=== PATIENT | female | born 1990 | race Two or more races ===

== ENCOUNTER 2019-08-24 16:31 | Emergency (ER) | payer OTHER ==
[~2019-08-24] VITALS: Ht 167.6 cm; Wt 130.2 kg
--- NOTE | 2019-08-24 16:45 | NUR ---
SIRIA PAYTON 86 from HOME "Abdominal pain/nausea/vomiting", TO ER BED 2, HOOKED TO MONITOR, CHANGED TO HOSP GOWN, WARM BLANKET PROVIDED, PATIENT AOx 4, BREATHING EVEN AND UNLABORED, TOBACCO SORTER DEGRASSE AT BEDSIDE
--- NOTE | 2019-08-24 16:54 | NUR ---
US TECH AT BEDSIDE
[2019-08-24] MEDS ORDERED: HYDROMORPHONE INJ 2 MG/ML DISP.SYRIN IV ONE (17:00)
[2019-08-24] MEDS ORDERED: ONDANSETRON HCL/PF 4 MG/2 ML VIAL IVP ONE (17:00)
[2019-08-24] MEDS ORDERED: IV NS 0.9% 1,000 ML BAG IV ONE (17:00)
[2019-08-24] MEDS ORDERED: ONDANSETRON HCL/PF 4 MG/2 ML VIAL ONE (17:02)
[2019-08-24] MEDS ORDERED: HYDROMORPHONE 1 MG/1 ML DISP.SYRIN ONE (17:02)
--- NOTE | 2019-08-24 17:20 | NUR ---
UNABLE TO PROVIDE URINE SAMPLE AT THIS TIME, MADE CHART COMPUTER DEGRASSE AWARE
[2019-08-24 17:21] LABS: BASOPHILS # (AUTO) 0.1 /CMM (0.0-0.2); BASOPHILS % (AUTO) 0.5 % (0.0-2.0); EOSINOPHILS % (AUTO) 0.2 % (0.0-6.0); HEMATOCRIT 52 % (33-45); LYMPHOCYTES # (AUTO) 2.3 /CMM (0.8-4.8); LYMPHOCYTES % (AUTO) 15.4 % (20.0-44.0); MEAN CORPUSCULAR HGB CONC 33 g/dl (31.0-36.0); MEAN CORPUSCULAR VOLUME 82 fL (82-100); MONOCYTES # (AUTO) 0.6 /CMM (0.1-1.30); MONOCYTES % (AUTO) 3.8 % (2.0-12.0); NEUTROPHILS # (AUTO) 11.7 /CMM (1.8-8.9); NEUTROPHILS % (AUTO) 80.1 % (43.0-81.0); PLATELET COUNT (AUTO) 437 /CMM (150-450); RED BLOOD CELL COUNT(AUTO) 6.31 MIL/uL (4.0-5.2); WHITE BLOOD COUNT (AUTO) 14.6 K/uL (4.3-11.0)
[2019-08-24 17:28] LABS: CALCIUM, SERUM 9.9 mg/dL (8.5-10.1); POTASSIUM 3.7 mmol/L (3.5-5.1)
[2019-08-24 17:34] LABS: ALBUMIN 3.9 g/dL (3.4-5.0); BILIRUBIN,DIRECT 0.1 mg/dL (0.0-0.2); BILIRUBIN,TOTAL 0.6 mg/dL (0.2-1.0); TOTAL PROTEIN, SERUM 8.3 g/dL (6.4-8.2)
--- NOTE | 2019-08-24 18:07 | NUR ---
URINE SAMPLE COLLECTED AND SENT TO LAB
[2019-08-24 18:20] LABS: APPEARANCE,URINE Slightly Cloudy (CLEAR); BILIRUBIN,URINE MODERATE (NEGATIVE); BLOOD, URINE Negative Ery/uL (NEGATIVE); COLOR,URINE Dark (YELLOW); KETONES,URINE 15 (NEGATIVE); LEUKOCYTE ESTERASE ,URINE Negative (NEGATIVE); NITRITE, URINE Negative (NEGATIVE); PH,URINE 5.5 (5.0-8.0); PROTEIN,URINE 100 mg/dl (NEGATIVE); UGLUCOSE Negative (NEGATIVE)
--- NOTE | 2019-08-24 18:24 | NUR ---
wheeled out via rney for ct scan
[2019-08-24] MEDS ORDERED: CT SWABBABLE VALVE TRANS SET 1 EA INFUS.SET MC ONE (18:29)
[2019-08-24] MEDS ORDERED: IOHEXOL-300 100 ML VIAL IV ONE (18:29)
[2019-08-24] MEDS ORDERED: IV NS 0.9% 250 ML IV ONE (18:30)
[2019-08-24 18:47] LABS: WBC,URINE 0-2 /HPF (0-3)
[2019-08-24 18:48] LABS: BACTERIA,URINE Few /HPF (None Seen)
[2019-08-24 18:49] LABS: CALCIUM OXALATE CRYSTALS,UR Few /HPF (None Seen); HYALINE CASTS, URINE Rare /LPF (None Seen); URINE AMORPHOUS URATE Few /HPF (None Seen)
--- NOTE | 2019-08-24 19:30 | NUR ---
REPORT GIVEN TO EL STARK FOR S[facility]
[2019-08-24] MEDS ORDERED: ONDANSETRON 4 MG TAB.RAPDIS ONE (19:58)
[2019-08-24] MEDS ORDERED: ONDANSETRON 4 MG TAB.RAPDIS SL ONE (20:00)
--- NOTE | 2019-08-24 20:08 | NUR ---
Patient discharged to home in stable condition. Written and verbal after care instructions given. Patient verbalizes understanding of instruction.IV removed. Catheter intact and site benign. Pressure and 4x4 applied to site. No bleeding noted. Pt ambulatory with a steady gait
[2019-08-24 20:10] VITALS: BP 108/67
== END 2019-08-24 20:10 | disposition home or self-care (01) ==
LOC: ER 16:34
DX: K29.70 Gastritis, unspecified, without bleeding (principal); K76.0 Fatty (change of) liver, not elsewhere classified; D75.1 Secondary polycythemia; J45.909 Unspecified asthma, uncomplicated
CPT/HCPCS: 36415; 74177; 76705; 80048; 80076; 81001; 83690; 84703; 85025; 96361; 96374; 96375; 96376; 99284; J1170; J2405; J7030; J7050; Q0162; Q9967; 81000-TC

== ENCOUNTER 2020-06-28 17:05 | Inpatient (IN) | payer BC, OTHER ==
[~2020-06-28] VITALS: Ht 167.6 cm; Wt 142.4 kg
[2020-06-28 09:30] VITALS: BP 127/73
[2020-06-28] MEDS ORDERED: ONDANSETRON HCL/PF 4 MG/2 ML VIAL IVP ONE ×2 (17:30→18:30)
[2020-06-28] MEDS ORDERED: PANTOPRAZOLE 40 MG VIAL IV ONE (17:30)
[2020-06-28] MEDS ORDERED: IV NS 0.9% 1,000 ML BAG IV ONE (17:30)
[2020-06-28] MEDS ORDERED: ONDANSETRON HCL/PF 4 MG/2 ML VIAL ONE ×2 (17:33→18:30)
[2020-06-28] MEDS ORDERED: PANTOPRAZOLE 40 MG VIAL ONE (17:33)
[2020-06-28 17:53] LABS: BASOPHILS # (AUTO) 0.1 /CMM (0.0-0.2); BASOPHILS % (AUTO) 0.7 % (0.0-2.0); EOSINOPHILS % (AUTO) 0.5 % (0.0-6.0); HEMATOCRIT 42 % (33-45); HEMOGLOBIN 14.1 g/dL (11.5-14.8); LYMPHOCYTES % (AUTO) 21.8 % (20.0-44.0); MEAN CORPUSCULAR HGB CONC 33 g/dl (31.0-36.0); MEAN CORPUSCULAR VOLUME 82 fL (82-100); MONOCYTES # (AUTO) 0.9 /CMM (0.1-1.30); MONOCYTES % (AUTO) 6.4 % (2.0-12.0); NEUTROPHILS # (AUTO) 9.6 /CMM (1.8-8.9); NEUTROPHILS % (AUTO) 70.6 % (43.0-81.0); PLATELET COUNT (AUTO) 465 /CMM (150-450); RED BLOOD CELL COUNT(AUTO) 5.12 MIL/uL (4.0-5.2); WHITE BLOOD COUNT (AUTO) 13.6 K/uL (4.3-11.0)
[2020-06-28 18:11] LABS: ALANINE AMINOTRANSFERASE 29 U/L (12-78); ALBUMIN 3.4 g/dL (3.4-5.0); ALKALINE PHOSPHATASE 85 U/L (46-116); ASPARTATE AMINOTRANSFERASE 20 U/L (15-37); BILIRUBIN,DIRECT 0.1 mg/dL (0.0-0.2); BILIRUBIN,TOTAL 0.4 mg/dL (0.2-1.0); CALCIUM, SERUM 9.4 mg/dL (8.5-10.1); CARBON DIOXIDE 26 mmol/L (21-32); CHLORIDE 102 mmol/L (98-107); GLUCOSE 112 mg/dL (74-106); LIPASE 1858 U/L (73-393); POTASSIUM 3.6 mmol/L (3.5-5.1); SODIUM SERUM 140 mmol/L (136-145); TOTAL PROTEIN, SERUM 8.1 g/dL (6.4-8.2); UREA NITROGEN, BLOOD 15 mg/dL (7-18)
[2020-06-28] MEDS ORDERED: MORPHINE SULFATE INJ 2 MG/ML DISP.SYRIN IV ONE (18:30)
[2020-06-28] MEDS ORDERED: MORPHINE SULFATE INJ 4 MG/ML DISP.SYRIN ONE (18:31)
[2020-06-28 18:42] LABS: BILIRUBIN,URINE Negative (NEGATIVE); COLOR,URINE YELLOW (YELLOW); LEUKOCYTE ESTERASE ,URINE Negative (NEGATIVE); NITRITE, URINE Negative (NEGATIVE); PROTEIN,URINE Negative (NEGATIVE); UGLUCOSE Negative (NEGATIVE); UROBILINOGEN,URINE 0.2 EU/dL (0.2)
[2020-06-28 18:52] LABS: BACTERIA,URINE Few /HPF (None Seen); RBC,URINE 0-2 /HPF (0-2); SQUAMOUS EPITHELIAL CELL,UR Few /HPF (None Seen); WBC,URINE 0-2 /HPF (0-3)
[2020-06-28 18:58] LABS: CHOLESTEROL 304 mg/dL (<200); HDL CHOLESTEROL 39 mg/dL (40-60); LDL 209 mg/dL (0-99); TRIGLYCERIDES 278 mg/dL (30-150)
[2020-06-28] MEDS ORDERED: ACETAMINOPHEN 650 MG/SUPP.RECT RC PRN (20:00)
[2020-06-28] MEDS ORDERED: ONDANSETRON HCL/PF 4 MG/2 ML VIAL IVP PRN (20:00)
[2020-06-28] MEDS ORDERED: MORPHINE SULFATE INJ 2 MG/ML DISP.SYRIN IV PRN (20:00)
[2020-06-28 20:42] VITALS: BP 136/74
[2020-06-28] MEDS ORDERED: ENALAPRILAT INJ (1.25 MG/ML) 1.25 MG/ML VIAL IV PRN (22:30)
[2020-06-28] MEDS: IV NS 0.9% 1,000 ML IV PRN (22:50)
[2020-06-29 07:17] LABS: BASOPHILS % (AUTO) 0.4 % (0.0-2.0); EOSINOPHILS % (AUTO) 0.8 % (0.0-6.0); HEMATOCRIT 38 % (33-45); HEMOGLOBIN 12.5 g/dL (11.5-14.8); LYMPHOCYTES # (AUTO) 2.7 /CMM (0.8-4.8); MEAN CORPUSCULAR HGB CONC 34 g/dl (31.0-36.0); MEAN CORPUSCULAR VOLUME 83 fL (82-100); MONOCYTES # (AUTO) 0.7 /CMM (0.1-1.30); MONOCYTES % (AUTO) 6.4 % (2.0-12.0); NEUTROPHILS # (AUTO) 7.7 /CMM (1.8-8.9); NEUTROPHILS % (AUTO) 68.4 % (43.0-81.0); PLATELET COUNT (AUTO) 355 /CMM (150-450); RED BLOOD CELL COUNT(AUTO) 4.52 MIL/uL (4.0-5.2); WHITE BLOOD COUNT (AUTO) 11.2 K/uL (4.3-11.0)
[2020-06-29] MEDS ORDERED: NORG1TAB12 PO (07:33)
[2020-06-29 07:36] LABS: THYROID STIMULATING HORMONE 1.803 uIU/mL (0.358-3.74)
[2020-06-29 07:37] LABS: CALCIUM, SERUM 8.5 mg/dL (8.5-10.1); CREATININE 0.9 mg/dL (0.6-1.3); MAGNESIUM 2.3 mg/dL (1.8-2.4); PHOSPHORUS 3.8 mg/dL (2.5-4.9)
[2020-06-29] MEDS: IV NS 0.9% 1,000 ML IV PRN (08:30)
[2020-06-29] MEDS ORDERED: PANTOPRAZOLE 40 MG VIAL IV SCH (09:00)
== END 2020-06-29 18:30 | disposition home or self-care (01) | DRG 439 ==
LOC: ER 17:07 → MED 20:43
PROVIDERS: ADMIT Nurse Practitioner Acute Care
DX: K85.90 Acute pancreatitis without necrosis or infection, unspecified (principal); Z68.43 Body mass index [BMI] 50.0-59.9, adult; E66.01 Morbid (severe) obesity due to excess calories; I10 Essential (primary) hypertension; J45.909 Unspecified asthma, uncomplicated; K76.0 Fatty (change of) liver, not elsewhere classified; D72.829 Elevated white blood cell count, unspecified; R73.9 Hyperglycemia, unspecified; Z20.822 Contact with and (suspected) exposure to COVID-19; E78.5 Hyperlipidemia, unspecified
CPT/HCPCS: 36415; 71045-TC; 76700-TC; 80048-TC; 80061-TC; 80076-TC; 81001; 83690-TC; 83735-TC; 84100-TC; 84443-TC; 84484-TC; 84703-TC; 85025-TC; 87081-TC; C9113; C9803; G0378; J2270; J2405; J3490; J7030

== ENCOUNTER 2021-04-05 10:46 | Emergency (ER) | payer BC ==
[~2021-04-05] VITALS: Ht 167.6 cm; Wt 152.0 kg
[~2021-04-05 10:46] MED LIST: NORG1TAB12 PO
--- NOTE | 2021-04-05 11:04 | NUR ---
SENT FROM URGENT CARE FOR C/O RIGHT LOWER ABDOMINAL PAIN AND C/O NAUSEA. RATES PAIN 8/10. ABDOMEN SOFT AND NON-DISTENDED. DENIES VOMITING. RESPIRATION REGULAR AND UNLABORED. WILL CONTINUE TO MONITOR THE PATIENT.
--- NOTE | 2021-04-05 11:13 | NUR ---
URINE SAMPLE COLLECTED AND SENT TO LAB
[2021-04-05] MEDS ORDERED: MORPHINE SULFATE INJ 2 MG/ML DISP.SYRIN ONE (11:18)
[2021-04-05] MEDS ORDERED: ONDANSETRON HCL/PF 4 MG/2 ML VIAL ONE (11:18)
[2021-04-05] MEDS ORDERED: ONDANSETRON HCL/PF 4 MG/2 ML VIAL IVP ONE (11:30)
[2021-04-05] MEDS ORDERED: MORPHINE SULFATE INJ 2 MG/ML DISP.SYRIN IV ONE (11:30)
[2021-04-05 11:43] LABS: BILIRUBIN,URINE NEGATIVE (NEGATIVE); COLOR,URINE YELLOW (YELLOW); LEUKOCYTE ESTERASE ,URINE NEGATIVE (NEGATIVE); NITRITE, URINE NEGATIVE (NEGATIVE); PH,URINE 7.5 (5.0-8.0); PROTEIN,URINE NEGATIVE (NEGATIVE); UGLUCOSE NEGATIVE (NEGATIVE); UROBILINOGEN,URINE 0.2 EU/dL (0.2)
--- NOTE | 2021-04-05 11:51 | NUR ---
INITIATED RAC #20G S/L. BLOODWORK COLLECTED AND SENT TO LAB US TECH AT PT'S BEDSIDE
[2021-04-05 11:53] LABS: BASOPHILS # (AUTO) 0.1 K/uL (0.0-0.2); BASOPHILS % (AUTO) 0.8 % (0.0-2.0); EOSINOPHILS % (AUTO) 0.5 % (0.0-6.0); HEMATOCRIT 40 % (33-45); HEMOGLOBIN 12.9 g/dL (11.5-14.8); LYMPHOCYTES # (AUTO) 2.4 K/uL (0.8-4.8); LYMPHOCYTES % (AUTO) 23.3 % (20.0-44.0); MEAN CORPUSCULAR HGB CONC 33 g/dl (31.0-36.0); MEAN CORPUSCULAR VOLUME 81 fL (82-100); MONOCYTES # (AUTO) 0.7 K/uL (0.1-1.30); MONOCYTES % (AUTO) 7.2 % (2.0-12.0); NEUTROPHILS # (AUTO) 7.1 K/uL (1.8-8.9); NEUTROPHILS % (AUTO) 68.2 % (43.0-81.0); PLATELET COUNT (AUTO) 374 K/uL (150-450); RED BLOOD CELL COUNT(AUTO) 4.93 MIL/uL (4.0-5.2); WHITE BLOOD COUNT (AUTO) 10.3 K/uL (4.3-11.0)
--- NOTE | 2021-04-05 12:27 | NUR ---
TAKE TO CT
[2021-04-05 12:34] LABS: CALCIUM, SERUM 8.8 mg/dL (8.5-10.1); CREATININE 0.8 mg/dL (0.6-1.3); POTASSIUM 4.1 mmol/L (3.5-5.1)
--- NOTE | 2021-04-05 12:35 | NUR ---
THE PATIENT IS BACK FROM CT
[2021-04-05 12:45] LABS: ALBUMIN 3.2 g/dL (3.4-5.0); BILIRUBIN,DIRECT 0.1 mg/dL (0.0-0.2); BILIRUBIN,TOTAL 0.4 mg/dL (0.2-1.0); TOTAL PROTEIN, SERUM 7.4 g/dL (6.4-8.2)
[2021-04-05 13:22] LABS: BACTERIA,URINE Rare /HPF (None Seen); RBC,URINE 0-2 /HPF (0-2); WBC,URINE 0-2 /HPF (0-3)
[2021-04-05 13:23] LABS: SQUAMOUS EPITHELIAL CELL,UR Few /HPF (None Seen); URINE AMORPHOUS PHOSPHATES Few /HPF (None Seen)
[2021-04-05] MEDS ORDERED: HYDROCODONE/APAP 10/325MG TABLET ONE (14:54)
[2021-04-05] MEDS ORDERED: HYDROCODONE/APAP 10/325MG TABLET PO ONE (15:00)
[2021-04-05] MEDS ORDERED: TRAM50TA2 PO (15:01)
--- NOTE | 2021-04-05 15:16 | NUR ---
The patient is alert and oriented x4. IV removed. Catheter intact and site benign. Pressure and 4x4 applied to site. No bleeding noted.Patient discharged to home in stable condition. Written and verbal after care instructions given. Patient verbalizes understanding of instruction.
[2021-04-05 15:17] VITALS: BP 132/76
== END 2021-04-05 15:18 | disposition home or self-care (01) ==
LOC: ER 10:49
DX: R10.31 Right lower quadrant pain (principal); E28.2 Polycystic ovarian syndrome; J45.909 Unspecified asthma, uncomplicated; Z98.890 Other specified postprocedural states
CPT/HCPCS: 36415; 74176; 76856; 80048; 80076; 81001; 83690; 84703; 85025; 96374; 96375; 99285; J2270; J2405

== ENCOUNTER 2022-07-11 18:29 | Emergency (ER) | payer BC ==
[~2022-07-11] VITALS: Ht 167.6 cm; Wt 172.8 kg
[~2022-07-11 18:29] MED LIST changes: +TRAM50TA2 PO
--- NOTE | 2022-07-11 18:45 | NUR ---
BIBS C/O sob, throat discoomfort at 1700. hives started this morning. took benadryl at 1430. hives, facial redness noted bell captain. AMBULATORY, PLACED IN BED, BREATHING EVEN AND UNLABORED SATURATING AT 97%RA, ANXIOUS.
[2022-07-11] MEDS ORDERED: predniSONE 20 MG TABLET ONE (18:57)
[2022-07-11] MEDS ORDERED: FAMOTIDINE (20 MG) 20 MG TABLET ONE (18:58)
[2022-07-11] MEDS ORDERED: diphenhydrAMINE HCL 25 MG CAPSULE ONE (18:58)
[2022-07-11] MEDS ORDERED: predniSONE 50 MG TABLET PO ONE (19:00)
[2022-07-11] MEDS ORDERED: diphenhydrAMINE HCL 25 MG CAPSULE PO ONE (19:00)
[2022-07-11] MEDS ORDERED: FAMOTIDINE (20 MG) 20 MG TABLET PO ONE (19:00)
[2022-07-11] MEDS ORDERED: PRED50TA PO (20:40)
[2022-07-11 21:00] VITALS: BP 117/75
--- NOTE | 2022-07-11 21:00 | NUR ---
IV removed. Catheter intact and site benign. Pressure and 4x4 applied to site. No bleeding noted.Patient discharged to home in stable condition. Written and verbal after care instructions given. Patient verbalizes understanding of instruction.
== END 2022-07-11 21:00 | disposition home or self-care (01) ==
LOC: ER 19:21
DX: L50.9 Urticaria, unspecified (principal); T78.40XA Allergy, unspecified, initial encounter; J45.909 Unspecified asthma, uncomplicated; Z98.890 Other specified postprocedural states; Z79.899 Other long term (current) drug therapy; X58.XXXA Exposure to other specified factors, initial encounter
CPT/HCPCS: 99284; Q0163; J7512

== ENCOUNTER 2023-01-24 09:39 | Emergency (ER) | payer BC ==
[~2023-01-24] VITALS: Ht 170.2 cm; Wt 170.1 kg
[~2023-01-24 09:39] MED LIST changes: +PRED50TA PO
[2023-01-24] MEDS ORDERED: IV NS 0.9% 1,000 ML IV ONE (10:00)
[2023-01-24] MEDS ORDERED: IV NS 0.9% 1,000 ML BAG IV ONE (10:00)
[2023-01-24 10:21] LABS: ADD URINE CULTURE YES; APPEARANCE,URINE CLOUDY (CLEAR); BACTERIA,URINE Rare /HPF (None Seen); BILIRUBIN,URINE 1+ (NEGATIVE); BLOOD, URINE 3+ Ery/uL (NEGATIVE); COLOR,URINE DARK YELLOW (YELLOW); KETONES,URINE NEGATIVE (NEGATIVE); LEUKOCYTE ESTERASE ,URINE TRACE (NEGATIVE); NITRITE, URINE NEGATIVE (NEGATIVE); PH,URINE 6.5 (5.0-8.0); PREGNANCY TEST URINE QUAL NEGATIVE (NEGATIVE); PROTEIN,URINE 1+ mg/dl (NEGATIVE); RBC,URINE 51-80 /HPF (0-2); SQUAMOUS EPITHELIAL CELL,UR Few /HPF (None Seen); UGLUCOSE NEGATIVE (NEGATIVE); UROBILINOGEN,URINE 0.2 EU/dL (0.2)
[2023-01-24 10:28] LABS: BASOPHILS # (AUTO) 0.1 K/uL (0.0-0.2); BASOPHILS % (AUTO) 0.5 % (0.0-2.0); EOSINOPHILS # (AUTO) 0.1 K/uL (0.0-0.7); EOSINOPHILS % (AUTO) 0.9 % (0.0-6.0); HEMATOCRIT 41 % (33-45); HEMOGLOBIN 13.6 g/dL (11.5-14.8); LYMPHOCYTES # (AUTO) 2.5 K/uL (0.8-4.8); LYMPHOCYTES % (AUTO) 19.6 % (20.0-44.0); MEAN CORPUSCULAR HEMOGLOBIN 25 PG (26.0-33.0); MEAN CORPUSCULAR HGB CONC 33 g/dl (31.0-36.0); MEAN CORPUSCULAR VOLUME 76 fL (82-100); MONOCYTES # (AUTO) 0.7 K/uL (0.1-1.30); MONOCYTES % (AUTO) 5.5 % (2.0-12.0); NEUTROPHILS # (AUTO) 9.5 K/uL (1.8-8.9); NEUTROPHILS % (AUTO) 73.5 % (43.0-81.0); PLATELET COUNT (AUTO) 544 K/uL (150-450); RED BLOOD CELL COUNT(AUTO) 5.41 MIL/uL (4.0-5.2); RED CELL DISTRIBUTION WIDTH 15.2 % (11.5-15.0)
[2023-01-24 10:30] LABS: ALBUMIN 3.5 g/dL (3.4-5.0); BILIRUBIN,DIRECT 0.1 mg/dL (0.0-0.2); BILIRUBIN,TOTAL 0.5 mg/dL (0.2-1.0); CALCIUM, SERUM 9.6 mg/dL (8.5-10.1); CREATININE 0.8 mg/dL (0.6-1.3); POTASSIUM 4.5 mmol/L (3.5-5.1)
[2023-01-24] MEDS ORDERED: IV NS 0.9% 250 ML IV ONE (10:57)
[2023-01-24] MEDS ORDERED: IOHEXOL-300 100 ML VIAL IV ONE (10:57)
[2023-01-24] MEDS ORDERED: ONDA4TAB5 PO (11:22)
[2023-01-24] MEDS ORDERED: IBUP-1955 PO (11:22)
[2023-01-24] MEDS ORDERED: CEPH500C2 PO (11:23)
[2023-01-24] MEDS ORDERED: CEFTRIAXONE 1 G in IV D5W 50 ML IV ONE (11:30)
[2023-01-24] MEDS ORDERED: KETOROLAC TROMETHAMINE INJ 30 MG/ML VIAL ONE (12:18)
[2023-01-24] MEDS ORDERED: ONDANSETRON HCL/PF 4 MG/2 ML VIAL ONE (12:18)
[2023-01-24] MEDS ORDERED: MORPHINE SULFATE INJ 4 MG/ML DISP.SYRIN ONE (12:18)
[2023-01-24] MEDS ORDERED: ACETAMINOPHEN 325 MG TABLET ONE (12:19)
[2023-01-24] MEDS ORDERED: MORPHINE SULFATE INJ 2 MG/ML DISP.SYRIN IV ONE (12:30)
[2023-01-24] MEDS ORDERED: ONDANSETRON HCL/PF 4 MG/2 ML VIAL IV ONE (12:30)
[2023-01-24] MEDS ORDERED: ACETAMINOPHEN 325 MG TABLET PO ONE (12:30)
[2023-01-24] MEDS ORDERED: KETOROLAC TROMETHAMINE INJ 30 MG/ML VIAL IV ONE (12:30)
[2023-01-24 12:40] VITALS: BP 129/82; TEMP 98.7; O2SAT 99
== END 2023-01-24 12:40 | disposition home or self-care (01) ==
LOC: ER 09:41
DX: E28.2 Polycystic ovarian syndrome (principal); N39.0 Urinary tract infection, site not specified; N80.9 Endometriosis, unspecified; N92.6 Irregular menstruation, unspecified; R10.31 Right lower quadrant pain; R11.0 Nausea; J45.909 Unspecified asthma, uncomplicated
CPT/HCPCS: 99285; 74177; 96365; 96375; 76856; 96361; 85025; 80048; 87086; 83690; 80076; 84703; 81001; 36415; J2270; J0696; J1885; J2405; J7060; J7030 ×2; J7050; Q9967

== ENCOUNTER 2023-09-23 04:48 | Emergency (ER) | payer BC ==
[~2023-09-23] VITALS: Ht 172.7 cm; Wt 99.8 kg
[~2023-09-23 04:48] MED LIST changes: +CEPH500C2 PO; +IBUP-1955 PO; +ONDA4TAB5 PO
[2023-09-23] MEDS ORDERED: BENZONATATE 100 MG CAPSULE PO ONE (06:37)
[2023-09-23] MEDS: BENZONATATE 100 MG CAPSULE PO PRN (06:39)
[2023-09-23] MEDS ORDERED: ALBU18HF2 INH (06:43)
[2023-09-23] MEDS ORDERED: BENZ-13 PO (06:43)
[2023-09-23 07:28] VITALS: BP 145/90; TEMP 99.7; O2SAT 97
== END 2023-09-23 07:28 | disposition home or self-care (01) ==
LOC: ER 04:52
DX: B34.9 Viral infection, unspecified (principal); J45.909 Unspecified asthma, uncomplicated; Z79.899 Other long term (current) drug therapy
CPT/HCPCS: 71045-TC

== ENCOUNTER 2024-05-07 08:54 | Emergency (ER) | payer BC, OTHER ==
[~2024-05-07] VITALS: Ht 167.6 cm; Wt 183.7 kg
[~2024-05-07 08:54] MED LIST changes: +ALBU18HF2 INH; +BENZ-13 PO
[2024-05-07 09:50] LABS: BASOPHILS # (AUTO) 0.1 K/uL (0.0-0.2); BASOPHILS % (AUTO) 0.9 % (0.0-2.0); EOSINOPHILS # (AUTO) 0.1 K/uL (0.0-0.7); EOSINOPHILS % (AUTO) 1.1 % (0.0-6.0); HEMATOCRIT 41 % (33-45); HEMOGLOBIN 13.3 g/dL (11.5-14.8); LYMPHOCYTES # (AUTO) 2.1 K/uL (0.8-4.8); LYMPHOCYTES % (AUTO) 21.5 % (20.0-44.0); MEAN CORPUSCULAR HEMOGLOBIN 26 PG (26.0-33.0); MEAN CORPUSCULAR HGB CONC 32 g/dl (31.0-36.0); MEAN CORPUSCULAR VOLUME 80 fL (82-100); MONOCYTES # (AUTO) 0.5 K/uL (0.1-1.30); MONOCYTES % (AUTO) 5.1 % (2.0-12.0); NEUTROPHILS % (AUTO) 71.4 % (43.0-81.0); PLATELET COUNT (AUTO) 414 K/uL (150-450); RED BLOOD CELL COUNT(AUTO) 5.17 MIL/uL (4.0-5.2); RED CELL DISTRIBUTION WIDTH 15.8 % (11.5-15.0); WHITE BLOOD COUNT (AUTO) 9.8 K/uL (4.3-11.0)
[2024-05-07 09:55] LABS: APPEARANCE,URINE CLEAR (CLEAR); BILIRUBIN,URINE NEGATIVE (NEGATIVE); BLOOD, URINE TRACE-INTA Ery/uL (NEGATIVE); COLOR,URINE YELLOW (YELLOW); KETONES,URINE NEGATIVE (NEGATIVE); LEUKOCYTE ESTERASE ,URINE NEGATIVE (NEGATIVE); NITRITE, URINE NEGATIVE (NEGATIVE); PROTEIN,URINE NEGATIVE (NEGATIVE); UGLUCOSE NEGATIVE (NEGATIVE); UROBILINOGEN,URINE 0.2 EU/dL (0.2)
[2024-05-07 09:56] LABS: ADD URINE CULTURE NO; WBC,URINE 0-2 /HPF (0-3)
[2024-05-07 09:57] LABS: BACTERIA,URINE Rare /HPF (None Seen); SQUAMOUS EPITHELIAL CELL,UR Few /HPF (None Seen)
[2024-05-07 10:05] LABS: ALBUMIN 3.4 g/dL (3.4-5.0); BILIRUBIN,DIRECT 0.1 mg/dL (0.0-0.2); BILIRUBIN,TOTAL 0.4 mg/dL (0.2-1.0); CALCIUM, SERUM 8.9 mg/dL (8.5-10.1); CREATININE 0.9 mg/dL (0.6-1.3); POTASSIUM 4.5 mmol/L (3.5-5.1); TOTAL PROTEIN, SERUM 7.5 g/dL (6.4-8.2)
[2024-05-07] MEDS ORDERED: IV NS 0.9% 250 ML IV ONE (10:16)
[2024-05-07] MEDS ORDERED: IOHEXOL-300 100 ML VIAL IV ONE (10:16)
[2024-05-07] MEDS ORDERED: ALBUTEROL FS 2.5 MG/3 ML VIAL.NEB NEB ONE (12:00)
[2024-05-07] MEDS ORDERED: IPRATROPIUM NEB FS 0.5 MG/2.5 ML AMPUL.NEB NEB ONE (12:00)
[2024-05-07] MEDS: MORPHINE SULFATE INJ 2 MG/ML DISP.SYRIN IV ONE (12:30)
[2024-05-07] MEDS ORDERED: MORPHINE SULFATE INJ 4 MG/ML DISP.SYRIN ONE (12:36)
[2024-05-07] MEDS ORDERED: NAPR-1009 PO (16:28)
[2024-05-07 17:03] VITALS: BP 140/74; TEMP 98.6; O2SAT 99
[2024-05-08 08:07] LABS: PREGNANCY TEST URINE QUAL NEGATIVE (NEGATIVE)
== END 2024-05-07 17:04 | disposition home or self-care (01) ==
LOC: ER 09:00
DX: R10.31 Right lower quadrant pain (principal); R10.2 Pelvic and perineal pain; E28.2 Polycystic ovarian syndrome; E66.9 Obesity, unspecified; J45.909 Unspecified asthma, uncomplicated; Z79.52 Long term (current) use of systemic steroids; Z90.89 Acquired absence of other organs; Z68.44 Body mass index [BMI] 60.0-69.9, adult
CPT/HCPCS: 99285; 74177; 96374; 85025; 80048; 83605; 83690; 80076; 84703; 81001; 36415; 76856 ×2; J2270; J7050; Q9967